=== PATIENT | male | born 1970 | race Caucasian/White ===

== ENCOUNTER 2017-12-09 10:12 | Outpatient (CLI) | payer OTHER ==
--- NOTE | 2017-12-09 14:38 | Diagnostic Imaging Report ---
Indication: Foot pain Technique: 3 views right foot Comparison: none Findings: No acute fractures. No dislocations. The joint spaces are preserved. There is a small plantar spur Impression: No acute process
--- NOTE | 2017-12-09 14:39 | Diagnostic Imaging Report ---
Indication: Shoulder pain Technique: 3 views of the right shoulder Comparison: None Findings: No acute fractures. No dislocations. Joint spaces are preserved. Impression: Negative
== END 2017-12-09 12:12 | disposition home or self-care (01) ==
LOC: RAD 10:12
DX: M79.671 Pain in right foot (principal); M25.511 Pain in right shoulder